=== PATIENT | male | born 1985 | race Caucasian/White ===

== ENCOUNTER 2019-03-24 20:24 | Emergency (ER) | payer OTHER ==
[~2019-03-24] VITALS: Ht 175.3 cm; Wt 90.7 kg
[2019-03-24 20:36] VITALS: Ht 175.3 cm; Wt 90.7 kg
[2019-03-24 22:08] VITALS: BP 121/86
== END 2019-03-24 22:08 | disposition home or self-care (01) ==
LOC: ED 20:24
DX: G40.909 Epilepsy, unspecified, not intractable, without status epilepticus (principal); Z88.0 Allergy status to penicillin
CPT/HCPCS: J1953